=== PATIENT | female | born 1985 ===

== ENCOUNTER 2020-10-15 21:19 | Inpatient (IN) | payer OTHER ==
[~2020-10-15] VITALS: Ht 157.5 cm; Wt 93.8 kg
[2020-10-15 22:09] LABS: MEAN CORPUSCULAR HEMOGLOBIN 25.7 pg (27.0-34.8); MEAN CORPUSCULAR HGB CONC 33.8 g/dL (32.4-35.8); MEAN PLATELET VOLUME 7.6 fL (7.4-10.4); PLATELET COUNT 287 x10^3/uL (130-400); RED BLOOD COUNT 5.18 x10^6/uL (3.82-5.3); RED CELL DISTRIBUTION WIDTH 14.7 % (9.6-15.2)
[2020-10-15 22:27] LABS: ANION GAP 11 mmol/L (5-15); CALCIUM 8.6 mg/dL (8.5-10.1); CHLORIDE 109 mmol/L (98-107); CREATININE 0.52 mg/dL (0.55-1.02)
[2020-10-15 22:28] LABS: ALBUMIN 3.1 g/dL (3.4-5.0)
[2020-10-15] MEDS ORDERED: SODIUM CHLORIDE FLUSH 10ML SYR IVF ONE (22:30)
[2020-10-15 22:36] LABS: MD YES
[2020-10-15 22:38] LABS: ALANINE AMINOTRANSFERASE 35 U/L (12-78); ALKALINE PHOSPHATASE 155 U/L (45-117); BILIRUBIN,TOTAL 0.3 mg/dL (0.2-1.0); T4 (THYROXINE) 14.1 mcg/dL (4.8-13.9); TOTAL PROTEIN 6.5 g/dL (6.4-8.2); TROPONIN I < 0.015 ng/mL (0.000-0.045)
[2020-10-15 22:40] LABS: <PLATELET ESTIMATE> ADEQUATE; <PLT MORPHOLOGY> NORMAL PLT MORPH; EOS#(MANUAL) 0.68 x10^3/uL (0.0-0.4); EOS% (MANUAL) 8 % (1-7); LYMPH#(MANUAL) 3.57 x10^3/uL (1-3.4); LYMPHS% (MANUAL) 42 % (22-44); MICROCYTOSIS 1+; MONOS#(MANUAL) 0.26 x10^3/uL (0.3-2.7); MONOS% (MANUAL) 3 % (2-9); SEGS% (MANUAL) 47 % (42-75)
[2020-10-15] MEDS ORDERED: OMNIPAQUE 350 MG/ML, 75ML BOTTLE ONE (23:12)
[2020-10-15 23:13] LABS: FREE T4 (FREE THYROXINE) 3.37 ng/dL (0.76-1.46)
[2020-10-15] MEDS ORDERED: PROPRANOLOL 1 MG/ML, 1ML IVPush ONE (23:30)
--- NOTE | 2020-10-16 00:09 | NUR ---
REPORT TO [facility]AN[facility]I
[2020-10-16 00:25] VITALS: BP 101/64
[2020-10-16 00:27] VITALS: BP 101/64
[2020-10-16] MEDS ORDERED: OXYB5TAB10 PO (00:51)
[2020-10-16] MEDS ORDERED: ASPI-691 PO (00:51)
[2020-10-16] MEDS ORDERED: MELATONIN 5 MG TABLET PO PRN (01:00)
[2020-10-16] MEDS ORDERED: LORazepam 0.5MG TABLET PO PRN (01:00)
[2020-10-16] MEDS ORDERED: ACETAMINOPHEN 325 MG TABLET PO PRN (01:00)
[2020-10-16] MEDS ORDERED: DOCUSATE 100 MG CAPSULE PO PRN (01:00)
[2020-10-16] MEDS ORDERED: MAGNESIUM SULFATE PMX 2GM/50ML 50 ML IV ONE (01:30)
[2020-10-16] MEDS ORDERED: ASA/APAP/ CAFFEINE TABLET PO PRN (01:30)
[2020-10-16] MEDS: METHIMAZOLE 5 MG TAB PO SCH ×2 (02:00→09:28)
[2020-10-16 05:54] LABS: BASOPHILS % (AUTO) 1 % (0-1); EOSINOPHILS % (AUTO) 8 % (1-7); LYMPHOCYTES % (AUTO) 44 % (22-44); MEAN CORPUSCULAR HEMOGLOBIN 25.5 pg (27.0-34.8); MEAN CORPUSCULAR HGB CONC 33.3 g/dL (32.4-35.8); MEAN PLATELET VOLUME 7.8 fL (7.4-10.4); MONOCYTES % (AUTO) 7 % (2-9); NEUTROPHILS % (AUTO) 40 % (42-75); PLATELET COUNT 276 x10^3/uL (130-400); RED BLOOD COUNT 5.17 x10^6/uL (3.82-5.3); RED CELL DISTRIBUTION WIDTH 14.8 % (9.6-15.2)
[2020-10-16 05:59] VITALS: BP 134/81
[2020-10-16] MEDS: ATENOLOL 25 MG TABLET PO SCH ×2 (05:59→17:39)
[2020-10-16 06:04] LABS: ANION GAP 10 mmol/L (5-15); CALCIUM 8.5 mg/dL (8.5-10.1); CHLORIDE 109 mmol/L (98-107); CREATININE 0.43 mg/dL (0.55-1.02)
[2020-10-16 06:05] LABS: MD NO
[2020-10-16 06:10] VITALS: BP 132/80
[2020-10-16] MEDS: OXYBUTYNIN CHLORIDE 5 MG TABLET PO SCH ×2 (09:26→20:57)
[2020-10-16] MEDS: MAGNESIUM OXIDE 400 MG TABLET PO SCH ×2 (09:26→20:57)
[2020-10-16 12:17] VITALS: BP 136/81
[2020-10-16] MEDS ORDERED: MAALOX/HYOSCYAMINE/LIDOCAINE 45 ML BTL PO ONE (13:00)
[2020-10-16] MEDS: OMEPRAZOLE 20 MG CAPSULE.DR PO SCH (13:51)
[2020-10-16] MEDS ORDERED: GADOTERATE 10 MMOL/20 ML VIAL ONE (18:14)
[2020-10-16 19:05] VITALS: BP 144/93
[2020-10-17 01:31] VITALS: BP 113/72
[2020-10-17 05:10] LABS: BASOPHILS % (AUTO) 1 % (0-1); EOSINOPHILS % (AUTO) 7 % (1-7); LYMPHOCYTES % (AUTO) 38 % (22-44); MEAN CORPUSCULAR HEMOGLOBIN 25.7 pg (27.0-34.8); MEAN CORPUSCULAR HGB CONC 33.5 g/dL (32.4-35.8); MEAN PLATELET VOLUME 7.5 fL (7.4-10.4); MONOCYTES % (AUTO) 6 % (2-9); NEUTROPHILS % (AUTO) 48 % (42-75); PLATELET COUNT 284 x10^3/uL (130-400); RED BLOOD COUNT 5.42 x10^6/uL (3.82-5.3); RED CELL DISTRIBUTION WIDTH 14.6 % (9.6-15.2)
[2020-10-17 05:19] LABS: ALBUMIN 3.2 g/dL (3.4-5.0); ANION GAP 6 mmol/L (5-15); CALCIUM 9.1 mg/dL (8.5-10.1); CHLORIDE 111 mmol/L (98-107)
[2020-10-17 05:24] LABS: MD NO
[2020-10-17] MEDS: ATENOLOL 25 MG TABLET PO SCH (05:24)
[2020-10-17] MEDS: OMEPRAZOLE 20 MG CAPSULE.DR PO SCH (05:24)
[2020-10-17 05:26] LABS: ALANINE AMINOTRANSFERASE 29 U/L (12-78); ALKALINE PHOSPHATASE 150 U/L (45-117); BILIRUBIN,TOTAL 0.6 mg/dL (0.2-1.0); CREATININE 0.53 mg/dL (0.55-1.02); TOTAL PROTEIN 6.5 g/dL (6.4-8.2)
[2020-10-17 07:50] VITALS: BP 125/84
[2020-10-17] MEDS: OXYBUTYNIN CHLORIDE 5 MG TABLET PO SCH (07:56)
[2020-10-17] MEDS: METHIMAZOLE 5 MG TAB PO SCH (07:57)
[2020-10-17] MEDS: MAGNESIUM OXIDE 400 MG TABLET PO SCH (07:57)
[2020-10-17] MEDS ORDERED: PRED20TA PO (09:52)
[2020-10-17] MEDS ORDERED: ATEN25TA PO (09:52)
[2020-10-17] MEDS ORDERED: METH5TAB6 PO (09:52)
[2020-10-17] MEDS ORDERED: OMEP-110 PO (09:52)
== END 2020-10-17 11:17 | disposition home or self-care (01) | DRG 310 ==
LOC: ED 22:30 → EDIP 10-16 00:03 → 4WST 10-16 00:23 → DCLOUNGE 10-17 11:06
PROVIDERS: ADMIT Internal Medicine; ATTEND Hospitalist
DX: R00.0 Tachycardia, unspecified (principal); E05.90 Thyrotoxicosis, unspecified without thyrotoxic crisis or storm; E06.9 Thyroiditis, unspecified; E83.42 Hypomagnesemia; H05.20 Unspecified exophthalmos; I10 Essential (primary) hypertension; K44.9 Diaphragmatic hernia without obstruction or gangrene; F32.9 Major depressive disorder, single episode, unspecified; G89.29 Other chronic pain; R00.2 Palpitations; R07.2 Precordial pain; R94.31 Abnormal electrocardiogram [ECG] [EKG]
CPT/HCPCS: 36415; 96374; 96375; 99285; A9575; 70543; 71046; 71275; 76536; 80048; 80053; 83036; 83735; 83880; 84436; 84439; 84443; 84445; 84481; 84484; 84703; 85025; 85379; 86376; 86800; 93005; G0378; Q9967; J1800; J3475; J7512